=== PATIENT | female | born 1975 | race Caucasian/White ===

== ENCOUNTER 2016-11-09 18:48 | Emergency (ER) | payer BC ==
[2016-11-09 20:40] VITALS: BP 139/70
--- NOTE | 2016-11-09 22:01 | UC ---
Throat Pain/Nasal Richy HPI - HPI Summary HPI Summary: DEVELOPED RIGHT SIDED THROAT PAIN ON 11/05/16. FACILITY DOCTOR AT ([facility]) WORK DIAGNOSED CONDITION VIRAL AND PRESCRIBED AZITHROMYCIN. PATIENT ONLY TOOK ONE DOSE OF ANTIBIOTICS AND IS CONCERNED THAT IT MIGHT BE STREP THROAT. NO FEVER. NO ABDOMINAL PAIN. NO ACHES. NO RASHES. - History of Current Complaint Chief Complaint: UCRespiratory Stated Complaint: SORE THROAT Time Seen by Provider: 11/09/16 20:36 Hx Obtained From: Patient Hx Last Menstrual Period: 11/05/16 Onset/Duration: Gradual Onset, Lasting Days, Still Present Severity: Mild Pain Intensity: 2 Pain Scale Used: 0-10 Numeric Cough: None Associated Signs & Symptoms: Positive: Dysphagia, Hoarseness - Epiglottits Risk Factors Epiglottis Risk Factors: Negative - SLOW ONSET - Allergies/Home Medications Allergies/Adverse Reactions: Allergies Allergy/AdvReac Type Severity Reaction Status Date / Time artificial food coloring Allergy Severe Hives Uncoded 11/09/16 20:37 Home Medications: Home Medications Azithromycin TAB* [Zithromax TAB (Z-MARTINA) 250 mg #6 tabs] 250 mg PO DAILY [History Confirmed 11/09/16] PMH/Surg Hx/FS Hx/Imm Hx Previously Healthy: Yes Endocrine History Of: Denies: Diabetes, Thyroid Disease Cardiovascular History Of: Denies: Cardiac Disorders, Hypertension Respiratory History Of: Denies: COPD, Asthma GI/ History Of: Denies: Ulcer - Surgical History Surgical History: Yes Surgery Procedure, Year, and Place: wisdom teeth extraction - Family History Known Family History: Positive: Hypertension - Social History Occupation: Employed Full-time Lives: With Family Alcohol Use: None Substance Use Type: None Smoking Status (MU): Never Smoked Tobacco - Immunization History Most Recent Influenza Vaccination: Review of Systems Constitutional: Negative Skin: Negative Eyes: Negative ENT: Sore Throat Respiratory: Negative Cardiovascular: Negative Gastrointestinal: Negative Genitourinary: Negative Motor: Negative Neurovascular: Negative Musculoskeletal: Negative Neurological: Negative Psychological: Negative All Other Systems Reviewed And Are Negative: Yes Physical Exam Triage Information Reviewed: Yes Appearance: No Pain Distress, Well-Nourished, Ill-Appearing - MILDLY, Obese Vital Signs: Initial Vital Signs Temp 98.6 F 11/09/16 20:33 Pulse 67 03/24/17 20:33 Resp 18 11/09/16 20:33 BP 139/70 11/09/16 20:33 Pulse Ox 97 11/09/16 20:33 Vital Signs Reviewed: Yes Eye Exam: Normal ENT: Positive: Hearing grossly normal, Pharyngeal erythema, TMs normal, Tonsillar swelling Dental Exam: Normal Neck exam: Normal Neck: Positive: Supple, Nontender, No Lymphadenopathy. Negative: Nuchal Rigidity, Tenderness @, Enlarged Nodes @ Respiratory Exam: Normal Respiratory: Positive: Chest non-tender, Lungs clear, Normal breath sounds, No respiratory distress, No accessory muscle use Cardiovascular Exam: Normal Cardiovascular: Positive: RRR, No Murmur, Pulses Normal Abdominal Exam: Normal Abdomen Description: Positive: Nontender, No Organomegaly Musculoskeletal Exam: Normal Musculoskeletal: Positive: Strength Intact, ROM Intact, No Edema Neurological Exam: Normal Psychological Exam: Normal Psychological: Positive: Normal Response To Family Skin Exam: Normal Throat Pain/Nasal Course/Dx - Differential Dx/Diagnosis Differential Diagnosis/HQI/PQRI: Pharyngitis, Sinusitis, Tonsillitis, URI Provider Diagnoses: TONSILLITIS. VIRAL SYNDROME Discharge - Discharge Plan Condition: Stable Disposition: HOME Patient Education Materials: Tonsillitis (ED), Viral Syndrome (ED) Referrals: SIA Phillips [Primary Care Provider] -
== END 2016-11-09 21:51 | disposition home or self-care (01) ==
LOC: UCEAST 18:48
DX: J03.90 Acute tonsillitis, unspecified (principal); B34.9 Viral infection, unspecified; E66.9 Obesity, unspecified
CPT/HCPCS: 87651; 99211; G0463

== ENCOUNTER 2016-11-21 13:51 | Emergency (ER) | payer SELFPAY ==
[2016-11-21 14:25] VITALS: BP 95/59
== END 2016-11-21 14:56 | disposition left against medical advice (07) ==
LOC: UCCORT 13:51
DX: M25.512 Pain in left shoulder (principal); R10.9 Unspecified abdominal pain; Z53.21 Procedure and treatment not carried out due to patient leaving prior to being seen by health care provider

== ENCOUNTER 2017-04-25 10:50 | Emergency (ER) | payer OTHER ==
[2017-04-25 11:04] VITALS: BP 116/58
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
[2017-04-25] MEDS ORDERED: Ondansetron ODT TAB* 4 MG PO ONE (11:19)
--- NOTE | 2017-04-25 12:33 | RAD ---
INDICATION: Head injury. COMPARISON: Comparison is made with a prior CT of the brain from February 08, 2014. TECHNIQUE: Contiguous axial sections of the brain were obtained from the skull base to the vertex without contrast. FINDINGS: The ventricles, cisterns and sulci are within normal limits. No significant focal abnormality or mass effect is seen. There is no evidence for hemorrhage. No significant focal osseous abnormality is seen. The visualized portion of the paranasal sinuses and mastoid air cells appear clear. IMPRESSION: NO EVIDENCE FOR ACUTE INTRACRANIAL ABNORMALITY.
== END 2017-04-25 12:43 | disposition home or self-care (01) ==
LOC: UCCORT 10:50
DX: S09.90XA Unspecified injury of head, initial encounter (principal); Y04.2XXA Assault by strike against or bumped into by another person, initial encounter
CPT/HCPCS: 70450; 99212; A9270-GY; G0463

== ENCOUNTER 2017-08-11 10:38 | Emergency (ER) | payer BC, OTHER ==
[2017-08-11] MEDS ORDERED: Ondansetron INJ* 2 MG/ML VIAL IV ONE (10:58)
[2017-08-11] MEDS ORDERED: Morphine INJ* 4 MG/ML 1 ML CARPUJECT IV ONE (10:58)
[2017-08-11 11:07] LABS: Hematocrit 38 % (35-47); Hemoglobin 13.2 g/dl (12.0-16.0); Mean Corpuscular HGB Conc 35 g/dl (31-36); Mean Corpuscular Hemoglobin 29 pg (27-31); Mean Corpuscular Volume 83 fL (80-97); Mean Platelet Volume 8 um3 (7.4-10.4); Red Blood Count 4.58 10^6/ul (4.0-5.4); Red Cell Distribution Width 14 % (10.5-15); White Blood Count 7.6 10^3/ul (3.5-10.8)
[2017-08-11 11:25] LABS: ALT 12 U/L (7-52); AST 14 U/L (13-39); Albumin 4.2 g/dL (3.2-5.2); Alkaline Phosphatase 62 U/L (34-104); Anion Gap 8 mmol/L (2-11); BUN/Creatinine Ratio 21.2 (8-20); Blood Urea Nitrogen 14 mg/dL (6-24); C Reactive Protein 3.31 mg/L (< 5.00); CO2 Carbon Dioxide 25 mmol/L (22-32); Calcium 8.7 mg/dL (8.6-10.3); Chloride 104 mmol/L (101-111); EGFR African American 127.6 (>60); EGFR Non-African American 99.2 (>60); Globulin 2.6 g/dL (2-4); Glucose 123 mg/dL (70-100); Lipase 14 U/L (11.0-82.0); Potassium 3.5 mmol/L (3.5-5.0); Sodium 137 mmol/L (133-145); Total Protein 6.8 g/dL (6.4-8.9)
[2017-08-11] MEDS ORDERED: Iohexol 300* (CONTRAST) 10 ML SDV IV ONE (11:34)
[2017-08-11] MEDS ORDERED: Ketorolac INJ* 30 MG/ML 1 ML VIAL IV PUSH ONE (11:47)
[2017-08-11 12:17] LABS: Urine Bacteria Absent (Absent); Urine Bilirubin Negative (Negative); Urine Glucose Negative (Negative); Urine Nitrite Negative (Negative)
[2017-08-11] MEDS ORDERED: Metoclopramide IV* 5 MG/ML 2 ML VIAL IV SLOW PU ONE (12:26)
--- NOTE | 2017-08-11 13:48 | RAD ---
Indication: Right lower quadrant pain. Contrast: Administered 121.2 ml of OMNIPAQUE 300 mg/ml. CT of the abdomen and pelvis was performed after oral and IV contrast administration. Coronal and sagittal reconstructed images were obtained. Lung bases demonstrate no pleural fluid, nodules or masses. Heart is normal size without evidence of pericardial effusion. Liver is normal in size. No focal lesions or intrahepatic ductal dilatation is noted. Gallbladder demonstrates no calcified gallstones. No pericholecystic fluid or wall thickening noted. The spleen is normal in size. The pancreas demonstrates no mass or pancreatic ductal dilation. The common duct is not dilated. No adrenal masses are noted. The kidneys demonstrate slight delay in the right nephrogram. Delayed images of the kidney could not BE obtained as the patient was not able to tolerate further imaging. I do not see a calculus in the right ureter however mild prominence of the right ureter is noted. The possibility of a distal right ureteral lesion should be considered. Additionally the possibility of pyelonephritis on the right kidney should also be considered. Clinical correlation is suggested. No dilated loops of bowel are noted. The colon is filled with stool. The appendix is visualized and is unremarkable. The ovaries are unremarkable. The uterus is otherwise unremarkable as are noted. No free fluid is identified in the pelvis. Ovaries demonstrates right ovarian cyst. IMPRESSION: There is enlargement with fullness of the right renal collecting system although no definite calculus is noted. Possibility of a pyelonephritis or distal right ureter lesion is not excluded. Clinical correlation is suggested. No evidence of appendicitis is noted.
[2017-08-11 14:13] VITALS: BP 125/57
--- NOTE | 2017-08-11 14:54 | ED ---
Sada Rao Abhishek, scribed for Vinny Morel MD on 08/11/17 at 1057 . Abdominal Pain/Female - HPI Summary HPI Summary: This patient is a 41 year old F presenting to [facility] accompanied by a male and female with a chief complaint of right flank pain since 020. Pt describes flank pain as a "spazzing" pain and states the paint radiates to the lower extremities and back. The onset of pain was sudden. The patient rates the pain 10/10 in severity. Symptoms aggravated by nothing. Symptoms alleviated by nothing. Patient reports diaphoresis, intermittent BM. Patient denies vaginal bleeding. - History of Current Complaint Stated Complaint: ABD PAIN Time Seen by Provider: 08/11/17 10:40 Hx Obtained From: Patient Onset/Duration: Sudden Onset Timing: Hours - 0200 today Severity Initially: Severe Severity Currently: Severe Pain Intensity: 10 Pain Scale Used: 0-10 Numeric Location: Discrete At: RLQ Radiates: Yes Radiates to: Back, Other - lower extremities Character: Other: - "Spazzing" Aggravating Factor(s): Nothing Alleviating Factor(s): Nothing Associated Signs and Symptoms: Positive: Diaphoresis, Other: - intermittent BM. Negative: Vaginal Bleeding Allergies/Adverse Reactions: Allergies Allergy/AdvReac Type Severity Reaction Status Date / Time artificial food coloring Allergy Severe Hives Uncoded 08/11/17 10:53 PMH/Surg Hx/FS Hx/Imm Hx Endocrine/Hematology History: Denies: Hx Diabetes, Hx Thyroid Disease Cardiovascular History: Denies: Hx Hypertension Respiratory History: Denies: Hx Asthma, Hx Chronic Obstructive Pulmonary Disease (COPD) GI History: Denies: Hx Ulcer Sensory History: Reports: Hx Contacts or Glasses Opthamlomology History: Reports: Hx Contacts or Glasses - Cancer History Hx Chemotherapy: No Hx Radiation Therapy: No - Surgical History Surgery Procedure, Year, and Place: wisdom teeth extraction Infectious Disease History: No Infectious Disease History: Denies: Hx Hepatitis, Hx Human Immunodeficiency Virus (HIV), History Other Infectious Disease, Traveled Outside the [place] in Last 30 Days - Family History Known Family History: Positive: Hypertension - Social History Alcohol Use: Rare Substance Use Type: Reports: None Smoking Status (MU): Never Smoked Tobacco Review of Systems Positive: Skin Diaphoresis Eyes: Negative ENT: Negative Cardiovascular: Negative Respiratory: Negative Positive: Abdominal Pain - right flank pain, Other - intermittent BM Positive: other - Negative Vaginal Bleeding Skin: Negative Neurological: Negative Psychological: Normal All Other Systems Reviewed And Are Negative: Yes Physical Exam - Summary Physical Exam Summary: Constitutional: Well-developed, Well-nourished, Alert. (-) Distressed Skin: Warm, Dry HENT: Normocephalic; Atraumatic Eyes: Conjunctiva normal Neck: Musculoskeletal ROM normal neck. (-) JVD, (-) Stridor, (-) Tracheal deviation Cardio: Rhythm regular, rate normal, Heart sounds normal; Intact distal pulses; The pedal pulses are 2+ and symmetric. Radial pulses are 2+ and symmetric. (-) Murmur Pulmonary/Chest wall: Effort normal. (-) Respiratory distress, (-) Wheezes, (-) Rales Abd: RLQ pain Musculoskeletal: (-) Edema Lymph: (-) Cervical adenopathy Neuro: Alert, Oriented x3 Psych: Mood and affect Normal Triage Information Reviewed: Yes Vital Signs On Initial Exam: Initial Vitals Temp Pulse Resp BP Pulse Ox 96.2 F 69 20 116/53 98 08/11/17 10:49 08/11/17 10:49 08/11/17 10:49 08/11/17 10:49 08/11/17 10:49 Vital Signs Reviewed: Yes - Thanh Coma Scale Coma Scale Total: 15 Diagnostics - Vital Signs Vital Signs Temp Pulse Resp BP Pulse Ox 08/11/17 10:49 96.2 F 69 20 116/53 98 - Laboratory Result Diagrams: 08/11/17 11:00 08/11/17 11:00 Lab Statement: Any lab studies that have been ordered have been reviewed, and results considered in the medical decision making process. - CT CT A/P CT Interpretation Completed By: Radiologist - CT A/P reveals There is enlargement with fullness of the right renal collecting system although no definite calculus is noted. Possibility of a pyelonephritis or distal right ureter lesion is not excluded. Clinical correlation is suggested. No evidence of appendicitis is noted. ED physician has reviewed this radiology report. Re-Evaluation - Re-Evaluation [id number] Re-Evaluation Time: 13:54 Comment: Patient reports no pain discomfort and pain was alleviated. Abdominal Pain Fem Course/Dx - Course Course Of Treatment: This patient is a 41 year old F presenting to [facility] accompanied by a male and female with a chief complaint of right flank pain since 0200. Pt describes flank pain as a "spazzing" pain and states the paint radiates to the lower extremities and back. The onset of pain was sudden. Patient reports diaphoresis, intermittent BM. Patient denies vaginal bleeding. CT A/P reveals There is enlargement with fullness of the right renal collecting system although no definite calculus is noted. Possibility of a pyelonephritis or distal right ureter lesion is not excluded. Clinical correlation is suggested. No evidence of. appendicitis is noted. ED physician has reviewed this radiology report. ReEval at 1354 patient reports no pain discomfort and pain was alleviated. In ED course, the patient reports hematuria, normal appendix, acute pain and hydroureter. We highly suspect that the patient passed a stone. Patient will be discharged home and dx will be ureter colic. - Diagnoses Provider Diagnoses: Ureter colic Discharge - Discharge Plan Condition: Stable Disposition: HOME Prescriptions: HYDROcodone/ACETAMIN 5-325 MG* [[place] 5-325 TAB*] 1 tab PO Q6H PRN #4 tab MDD 4 PRN Reason: Pain - Moderate To Severe Naproxen TAB* [Naprosyn 250 mg TAB*] 500 mg PO Q8H PRN #15 tab PRN Reason: Pain - Moderate To Severe Patient Education Materials: Renal Colic (ED) Referrals: SIA Phillips [Primary Care Provider] - (Follow up with PCP within 2 to 3 days.) Additional Instructions: RETURN TO THE EMERGENCY DEPARTMENT FOR CHANGING OR WORSENING SYMPTOMS. The documentation as recorded by the Sada viramontes Abhishek accurately reflects the service I personally performed and the decisions made by , Vinny Morel MD.
== END 2017-08-11 14:11 | disposition home or self-care (01) ==
LOC: ED 10:38
DX: N23 Unspecified renal colic (principal)
CPT/HCPCS: 36415; 74177; 80053; 81003; 81015; 83605; 83690; 84702; 85025; 86140; 96374; 96375; 99283; J1885; J2270; J2405; J2765; Q9967

== ENCOUNTER 2018-03-14 08:05 | Emergency (ER) | payer BC, OTHER ==
[2018-03-14 08:31] VITALS: BP 112/52
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
--- NOTE | 2018-03-14 09:32 | RAD ---
INDICATION: Right knee injury COMPARISON: None TECHNIQUE: AP, lateral, and oblique views were obtained. FINDINGS: The bony structures, joint spaces, and soft tissues are normal for age. IMPRESSION: NEGATIVE EXAMINATION
== END 2018-03-14 10:05 | disposition home or self-care (01) ==
LOC: UCEAST 08:05
DX: S80.01XA Contusion of right knee, initial encounter (principal); W20.8XXA Other cause of strike by thrown, projected or falling object, initial encounter; Y93.9 Activity, unspecified; Y99.9 Unspecified external cause status
CPT/HCPCS: 99212; G0463

== ENCOUNTER 2018-08-06 10:28 | Emergency (ER) | payer BC, OTHER ==
[2018-08-06 11:18] VITALS: BP 114/61
--- NOTE | 2018-08-07 13:12 | UC ---
- Progress Note Progress Note: Patient patient on August 06, 2018 did not have any x-rays ordered therefore there is no discrepancy Course/Dx - Diagnoses Provider Diagnoses: Patient left without being seen Discharge - Sign-Out/Discharge Documenting (check all that apply): Patient Departure All imaging exams completed and their final reports reviewed: No Studies - Discharge Plan Condition: Stable Disposition: LEFT WITHOUT BEING SEEN Referrals: No Primary Care Phys,NOPCP [Primary Care Provider] - - Billing Disposition and Condition Condition: STABLE Disposition: Left Without Being Seen
== END 2018-08-06 11:20 | disposition left against medical advice (07) ==
LOC: UCEAST 10:28
DX: Z53.21 Procedure and treatment not carried out due to patient leaving prior to being seen by health care provider (principal)

== ENCOUNTER 2018-10-26 20:04 | Emergency (ER) | payer BC, OTHER ==
[2018-10-26 20:10] VITALS: BP 127/67
--- NOTE | 2018-10-26 20:56 | UC ---
Respiratory Complaint HPI - HPI Summary HPI Summary: Pt with progresive sinus congestion, face pressure, pnd and ear fullness. dx with bronchitis - Rx prednisone, albuterol MDI. no fever, chills + OTCmed + cough no wheeze, no sob Medications reviewed this visit - History of Current Complaint Chief Complaint: UCRespiratory Stated Complaint: COUGH Time Seen by Provider: 10/26/18 20:51 Hx Obtained From: Patient Hx Last Menstrual Period: 09/09/18 ?: No Onset/Duration: Gradual Onset Pain Intensity: 0 - Allergies/Home Medications Allergies/Adverse Reactions: Allergies Allergy/AdvReac Type Severity Reaction Status Date / Time artificial food coloring Allergy Severe Hives Uncoded 08/06/18 11:18 Home Medications: Home Medications Albuterol Sulfate [Albuterol Sulfate Hfa] 90 mcg INH BID PRN 10/26/18 [History Confirmed 10/26/18] predniSONE TAB* [Deltasone 10 MG TAB*] 40 mg PO BID 10/26/18 [History Confirmed 10/26/18] PMH/Surg Hx/FS Hx/Imm Hx Previously Healthy: Yes - Surgical History Surgical History: Yes Surgery Procedure, Year, and Place: wisdom teeth extraction - Family History Known Family History: Positive: Hypertension, Non-Contributory - Social History Occupation: Employed Full-time Alcohol Use: None Substance Use Type: None Smoking Status (MU): Never Smoked Tobacco - Immunization History Most Recent Influenza Vaccination: no Review of Systems All Other Systems Reviewed And Are Negative: Yes Constitutional: Positive: Fatigue ENT: Positive: Nasal Discharge, Sinus Congestion, Sinus Pain/Tenderness Physical Exam - Summary Physical Exam Summary: Vital Signs Reviewed: Yes A+Ox3, no distress Eyes: Conjunctiva Clear, LUZ. EOM intact and full ENT: Hearing grossly normal fluid b/l TM L>R, turbinates inflammed and boggy, + PND, + max sinus tenderness L>R mild frontal, mmoist, uvula midline, no exudate, no erythema Neck: Positive: Supple Respiratory: Positive: No respiratory distress, No accessory muscle use + CTA throughout no w/r Cardiovascular: RRR nl s1, s2 no m/r CBT <2 sec abd soft + BS nt/nd no guarding, no distension Musculoskeletal Exam: DAVEY x 4 without difficulty Strength Intact, ROM Intact Neurological: Positive: Alert, + sensation throughout Psychological: Positive: Normal Response To Family Skin: Positive: no rash, no ecchymosis Triage Information Reviewed: Yes Vital Signs: Initial Vital Signs Temp 98.3 F 10/26/18 20:05 Pulse 82 10/26/18 20:05 Resp 18 10/26/18 20:05 BP 127/67 10/26/18 20:05 Pulse Ox 99 10/26/18 20:05 Respiratory Course/Dx - Course Course Of Treatment: pt on prednisone and Albuterol for bronchitis. states feels now with increased facial pressure, ear fullness, PND. Exam c.w sinusitiis. flu neg. Rx amox. hydrate. humidify air. secretion precaution. return precaution - Differential Dx/Diagnosis Provider Diagnosis: Acute sinus infection Discharge - Sign-Out/Discharge Documenting (check all that apply): Patient Departure All imaging exams completed and their final reports reviewed: No Studies - Discharge Plan Condition: Stable Disposition: HOME Prescriptions: Amoxicillin PO (*) [Amoxicillin 875 MG (*)] 875 mg PO BID #20 tab Fluconazole [Diflucan 150 MG (NF)] 150 mg PO ONCE PRN #1 tab PRN Reason: vaginal yeast infection Fluticasone NASAL SPRAY 50MCG* [Flonase NASAL SPRAY 50MCG*] 2 spray BOTH NARES DAILY #1 btl Patient Education Materials: Rhinosinusitis (ED) Forms: *Work Release Referrals: [facility] [Provider Group] No Primary Care Phys,NOPCP [Primary Care Provider] - Additional Instructions: -Take antibiotics exactly as prescribed until gone -Use your albuterol puffer - 2 puffs every 4 hours for the next 2 days - then as needed - use nasal spray as instructed\ -Stay well hydrated - avoid excess caffeine and all alcohol - eat regular, healthy meals - humidify the air in the room where you sleep - boil water, run a hot steam shower, vaporizer, cups of water by heat register - These infections are spread by secretions - do NOT share eating or drinking utensils - clean items you share with other people such as cell phones, computer mouse, TV remote, computer tablets,etc.. Once you have been antibiotics for 2 days, change your toothbrush and your pillowcase. - you have been prescribed the one time treatment for a yeast infection - if develop this infection after antibiotics, take as prescribed - Avoid cigarettes smoke as able -Contact your doctor to arrange a follow-up appointment. Call your doctor, return here or go to the emergency department with any questions or concerns - Billing Disposition and Condition Condition: STABLE Disposition: Home
[2018-10-26] MEDS ORDERED: Amoxicillin PO (*) 500 MG CAP PO ONE (21:03)
== END 2018-10-26 21:21 | disposition home or self-care (01) ==
LOC: UCEAST 20:04
DX: J01.90 Acute sinusitis, unspecified (principal); J40 Bronchitis, not specified as acute or chronic; Z91.02 Food additives allergy status
CPT/HCPCS: 99212; A9270-GY; G0463

== ENCOUNTER 2019-01-20 07:23 | Emergency (ER) | payer BC ==
[2019-01-20 07:31] VITALS: BP 107/55
--- NOTE | 2019-01-20 08:27 | UC ---
Lower Extremity/Ankle HPI - HPI Summary HPI Summary: STEPPED IN A HOLE WHILE MOWING THE LAWN YESTERDAY AND NOW HAS PAIN AND SWELLING TO THE BACK OF HER RIGHT HEEL. PT IS ABLE TO AMBULATE. OKAY ON FLAT SURFACES BUT PAIN WITH INCLINES AND STAIRS. - History of Current Complaint Chief Complaint: UCLowerExtremity Stated Complaint: HEEL INJURY Time Seen by Provider: 01/20/19 08:18 Hx Obtained From: Patient Hx Last Menstrual Period: 12/06/18 Onset/Duration: Sudden Onset, Lasting Days - 1 DAY, Still Present Severity Initially: Moderate Severity Currently: Moderate Pain Intensity: 5 Aggravating Factor(s): Ambulation Alleviating Factor(s): Rest Able to Bear Weight: Yes - Allergies/Home Medications Allergies/Adverse Reactions: Allergies Allergy/AdvReac Type Severity Reaction Status Date / Time artificial food coloring Allergy Severe Hives Uncoded 01/20/19 07:31 PMH/Surg Hx/FS Hx/Imm Hx Previously Healthy: Yes - Surgical History Surgical History: Yes Surgery Procedure, Year, and Place: wisdom teeth extraction - Family History Known Family History: Positive: Hypertension, Non-Contributory - Social History Alcohol Use: None Substance Use Type: None Smoking Status (MU): Never Smoked Tobacco - Immunization History Most Recent Influenza Vaccination: no Review of Systems All Other Systems Reviewed And Are Negative: Yes Constitutional: Positive: Negative Skin: Positive: Negative Respiratory: Positive: Negative Cardiovascular: Positive: Negative Gastrointestinal: Positive: Negative Musculoskeletal: Positive: Arthralgia, Decreased ROM, Edema Physical Exam Triage Information Reviewed: Yes Appearance: Well-Appearing, No Pain Distress, Well-Nourished Vital Signs: Initial Vital Signs Temp 98.7 F 01/20/19 07:28 Pulse 76 01/20/19 07:28 Resp 16 01/20/19 07:28 BP 107/55 01/20/19 07:28 Pulse Ox 99 01/20/19 07:28 Vital Signs Reviewed: Yes Eyes: Positive: Conjunctiva Clear ENT: Positive: Hearing grossly normal Neck: Positive: Supple Respiratory: Positive: No respiratory distress, No accessory muscle use Cardiovascular: Positive: Pulses Normal Abdomen Description: Positive: Soft Musculoskeletal: Positive: ROM Limited @ - RIGHT ANKLE, Edema @ - POSTERIOR RIGHT HEEL, Other: - TTP RIGHT ACHILLES INSERTION Neurological: Positive: Alert Psychological: Positive: Age Appropriate Behavior Skin: Negative: Rashes Diagnostics - Radiology RIGHT HEEL XRAYS Radiology Interpretation Completed By: Radiologist Summary of Radiographic Findings: HEEL SPURS. NO ACUTE OSSEOUS INJURY. Lower Extremity Course/Dx - Course Course Of Treatment: NO BONY INJURY ON X-RAY. CLINICALLY CONCERNED FOR ACHILLES TENDINITIS. REST, ICE, ELEVATE. CAM BOOT PROVIDED. PATIENT TO CALL ORTHOPEDICS TODAY FOR FOLLOW- UP APPOINTMENT. ADVISED TO LIMIT WEIGHTBEARING ABLE. - Differential Dx/Diagnosis Provider Diagnosis: Achilles tendinitis of right lower extremity Discharge - Sign-Out/Discharge Documenting (check all that apply): Patient Departure All imaging exams completed and their final reports reviewed: Yes - Discharge Plan Condition: Stable Disposition: HOME Patient Education Materials: Achilles Tendinitis (ED) Forms: *Work Release Referrals: Skip Lopez MD [Medical Doctor] - 3 Days Additional Instructions: X-RAY TODAY SHOWS SOME HEEL SPURS BUT NO ACUTE BONY ABNORMALITY. CLINICALLY I AM CONCERNED THAT YOU HAVE ACHILLES TENDINITIS. WEAR THE CAM BOOT TO HELP WITH DISCOMFORT. REST, ICE, ELEVATE. CALL ORTHOPEDICS TODAY TO SCHEDULE A FOLLOW- UP APPOINTMENT FOR THIS WEEK OR EARLY NEXT. - Billing Disposition and Condition Condition: STABLE Disposition: Home
== END 2019-01-20 09:10 | disposition home or self-care (01) ==
LOC: UCEAST 07:23
DX: M76.61 Achilles tendinitis, right leg (principal); W17.2XXA Fall into hole, initial encounter; Y93.H2 Activity, gardening and landscaping; Y92.9 Unspecified place or not applicable
CPT/HCPCS: 99212; G0463

== ENCOUNTER 2019-05-25 11:44 | Emergency (ER) | payer BC, OTHER ==
[2019-05-25 12:21] VITALS: BP 108/65
--- NOTE | 2019-05-25 12:38 | UC ---
Upper Extremity HPI - HPI Summary HPI Summary: 43 year old female denies PMH, presents after fall while seperating two children at her workplace. Fell directly onto L elbow. + pain with full extension, palpation over elbow, but + full ROM. no prior injuries, trauma. - History of Current Complaint Chief Complaint: UCUpperExtremity Stated Complaint: WC-SP FALL, LT ELBOW INJURY Time Seen by Provider: 05/25/19 12:36 Hx Obtained From: Patient Hx Last Menstrual Period: January-on control ?: No Onset/Duration: Sudden Onset, Lasting Minutes Severity Initially: Moderate Severity Currently: Moderate Pain Intensity: 7 Pain Scale Used: 0-10 Numeric Location Of Pain: Is Discrete @ - left elbow Character: Sharp, Aching Aggravating Factor(s): Movement Alleviating Factor(s): Rest Associated Signs And Symptoms: Positive: Swelling, Bruising, Numbness/Tingling - initially, hase resolved - Allergies/Home Medications Allergies/Adverse Reactions: Allergies Allergy/AdvReac Type Severity Reaction Status Date / Time artificial food coloring Allergy Severe Hives Uncoded 05/25/19 12:21 PMH/Surg Hx/FS Hx/Imm Hx Previously Healthy: Yes - Surgical History Surgical History: Yes Surgery Procedure, Year, and Place: wisdom teeth extraction - Family History Known Family History: Positive: Hypertension, Non-Contributory - Social History Occupation: Employed Full-time Alcohol Use: Occasionally Substance Use Type: None Smoking Status (MU): Never Smoked Tobacco - Immunization History Most Recent Influenza Vaccination: no Review of Systems All Other Systems Reviewed And Are Negative: Yes Constitutional: Positive: Negative Musculoskeletal: Positive: Arthralgia, Decreased ROM, Edema, Myalgia Psychological: Positive: Negative Is Patient Immunocompromised?: No Physical Exam Triage Information Reviewed: Yes Appearance: Well-Appearing, No Pain Distress, Well-Nourished Vital Signs: Initial Vital Signs Temp 97.6 F 05/25/19 12:16 Pulse 71 05/25/19 12:16 Resp 18 05/25/19 12:16 BP 108/65 05/25/19 12:16 Pulse Ox 100 05/25/19 12:16 Vital Signs Reviewed: Yes Eyes: Positive: Conjunctiva Clear Musculoskeletal: Positive: Strength Intact - l shoulder, elbow, wrist., ROM Intact - minimal pain with full extension of left elbow., Edema @ - trace edema l elbow, no bursitis Neurological: Positive: Alert, Other: - SITLT distal to L elbow, special ed assistant strength 5 /5 without pain. rad/ ulnar pulses 2+, no scaphoid tenderness, full wrist ROM without pain against resistence. Psychological Exam: Normal Skin: Positive: Other - small ~ 1cm superifical abrasion olecranon process Upper Extremity Course/Dx - Course Course Of Treatment: Elbow COntusion - MOnitor elbow for increased bruising, swelling, redness- possiblity of infected bursitis due to abrasion. Contact Dr. Alcala if occurs or go to ER - SLing as needed for comfort, remove several times a day to prevent frozen shoulder - Motrin/ Naproxen as needed for pain, swelling - Increase rest. - Ice for next 24-48 hours due to pain - WOrk note for light duty for next 3 days - Differential Dx/Diagnosis Differential Diagnosis/HQI/PQRI: Contusion, Hematoma, Strain, Sprain Provider Diagnosis: Contusion Discharge ED - Sign-Out/Discharge Documenting (check all that apply): Patient Departure All imaging exams completed and their final reports reviewed: Yes - Discharge Plan Condition: Good Disposition: HOME Patient Education Materials: Contusion in Adults (ED) Forms: *Work Release Referrals: No Primary Care Phys,NOPCP [Primary Care Provider] - [facility] [Outside] Chester Alcala MD [Medical Doctor] - Additional Instructions: Elbow COntusion - MOnitor elbow for increased bruising, swelling, redness- possiblity of infected bursitis due to abrasion. Contact Dr. Alcala if occurs or go to ER - SLing as needed for comfort, remove several times a day to prevent frozen shoulder - Motrin/ Naproxen as needed for pain, swelling - Increase rest. - Ice for next 24-48 hours due to pain - WOrk note for light duty for next 3 days - Billing Disposition and Condition Condition: GOOD Disposition: Home
== END 2019-05-25 13:18 | disposition home or self-care (01) ==
LOC: UCCORT 11:44
DX: S50.02XA Contusion of left elbow, initial encounter (principal); Z91.02 Food additives allergy status; W19.XXXA Unspecified fall, initial encounter; Y92.9 Unspecified place or not applicable
CPT/HCPCS: 99211; G0463

== ENCOUNTER 2020-04-14 10:39 | Observation (INO) ==
[~2020-04-14 10:39] MED LIST: NS 0.9% 1000 ml BAG 500 ML IV ONE; Ondansetron 4 mg VIAL 2 MG/ML 2 ml VIAL IV ONE; oxyCODONE SR 10 mg TAB PO ONE
[2020-04-14 11:20] LABS: ABS Basophils 0.1 10^3/ul (0-0.2); ABS Eosinophils 0.1 10^3/ul (0-0.6); ABS Lymphocytes 1.9 10^3/ul (1.0-4.8); ABS Monocytes 0.4 10^3/ul (0-0.8); ABS Neutrophils 4.6 10^3/ul (1.5-7.7); Eosinophil % 1.8 %; Hematocrit 36 % (35-47); Hemoglobin 12.8 g/dL (12.0-16.0); Lymphocyte % 27.1 %; Mean Corpuscular HGB Conc 35 g/dL (31-36); Mean Corpuscular Hemoglobin 30 pg (27-31); Mean Corpuscular Volume 85 fL (80-97); Mean Platelet Volume 9.1 fL (7.4-10.4); Platelet Count 182 10^3/uL (150-450); Red Cell Distribution Width 13 % (10-15); White Blood Count 7.1 10^3/uL (3.5-10.8)
[2020-04-14 11:36] LABS: Activated Partial Thrombo Time 28.7 seconds (26.0-38.0); INR 1.06 (0.82-1.09)
[2020-04-14 11:39] LABS: Anion Gap 6 mmol/L (2-11); BUN/Creatinine Ratio 19.2 (8-20); Blood Urea Nitrogen 10 mg/dL (6-24); CO2 Carbon Dioxide 26 mmol/L (22-32); Calcium 8.7 mg/dL (8.6-10.3); Chloride 106 mmol/L (101-111); EGFR African American 155.7 (>60); EGFR Non-African American 128.7 (>60); Glucose 100 mg/dL (70-100); Potassium 3.5 mmol/L (3.5-5.0); Sodium 138 mmol/L (135-145)
[2020-04-14 11:45] LABS: HCG Pregnancy < 0.60 mIU/mL
[2020-04-14] MEDS ORDERED: Ondansetron 4 mg VIAL 2 MG/ML 2 ml VIAL ONE ×2 (12:00→12:12)
[2020-04-14] MEDS ORDERED: Clindamycin 900 MG/D5W BAG 900 MG/50 ML BAG IVPB ONE (12:00)
[2020-04-14] MEDS ORDERED: oxyCODONE SR 10 mg TAB ONE (12:01)
[2020-04-14] MEDS ORDERED: fentaNYL 250 mcg/5 ml 50 MCG/ML 5 ml VIAL (250 MCG) ONE (12:11)
[2020-04-14] MEDS ORDERED: Midazolam 5 mg/5 ml VIAL 1 mg/ml 5 ml VIAL (5 mg) ONE (12:11)
[2020-04-14] MEDS ORDERED: Heparin 2 UNITS/ML 1000 mls 2,000 ML IV ONE (12:15)
[2020-04-14] MEDS ORDERED: Iohexol 350 (CONTRAST) 200 ML MDV IV ONE (12:15)
[2020-04-14] MEDS ORDERED: nitroGLYCERIN DRIP 25,000 MCG/250 ML BTL ONE (12:16)
[2020-04-14] MEDS ORDERED: Lidocaine 1% VIAL 10 MG/ML VIAL ONE (12:20)
[2020-04-14] MEDS ORDERED: HYDROmorphone 1 MG/1 ML SYRINGE ONE ×2 (14:20→14:34)
[2020-04-14] MEDS ORDERED: Prochlorperazine 5 mg/ml 2 ml VIAL (10 mg) ONE (14:28)
[2020-04-14] MEDS ORDERED: HYDROmorphone PCA 20 MG/20 ML PCA.SYRING PCA SCH (15:00)
[2020-04-14] MEDS ORDERED: Senna TAB 8.6 mg TAB PO PRN (16:59)
[2020-04-14] MEDS ORDERED: Albuterol HFA INHALER 8 gm MDI INH PRN (17:25)
[2020-04-14] MEDS ORDERED: NS 0.9% 1000 ml BAG 1,000 ML IV SCH (17:30)
[2020-04-14] MEDS: Ondansetron 4 mg VIAL 2 MG/ML 2 ml VIAL IV SCH (20:44)
[2020-04-15] MEDS: Ondansetron 4 mg VIAL 2 MG/ML 2 ml VIAL IV SCH (02:36)
[2020-04-15 05:47] LABS: ABS Lymphocytes 1.1 10^3/ul (1.0-4.8); ABS Monocytes 0.5 10^3/ul (0-0.8); ABS Neutrophils 8.1 10^3/ul (1.5-7.7); Eosinophil % 0.2 %; Hematocrit 33 % (35-47); Hemoglobin 11.8 g/dL (12.0-16.0); Lymphocyte % 11.4 %; Mean Corpuscular HGB Conc 36 g/dL (31-36); Mean Corpuscular Hemoglobin 30 pg (27-31); Mean Corpuscular Volume 84 fL (80-97); Mean Platelet Volume 8.6 fL (7.4-10.4); Platelet Count 177 10^3/uL (150-450); Red Blood Count 3.91 10^6 /uL (3.70-4.87); Red Cell Distribution Width 13 % (10-15); White Blood Count 9.8 10^3/uL (3.5-10.8)
[2020-04-15 07:36] VITALS: BP 121/60
[2020-04-15] MEDS ORDERED: HYDROcodone/ACETAMIN 5/325 mg TAB PO PRN (07:40)
[2020-04-15] MEDS ORDERED: Ketorolac 10 mg TAB (NF) PO SCH (08:00)
[2020-04-17] MEDS ORDERED: Scopolamine PATCH Remove NOTE PATCH OFF ONE (10:00)
== END 2020-04-15 11:05 | disposition home or self-care (01) ==
LOC: SSU 10:39 → CHICATH 10:39
PROVIDERS: ADMIT Radiology Diagnostic Radiology; ATTEND Internal Medicine
PROC: ANG.UFE (2020-04-14 12:10)